=== PATIENT | male | born 1980 | race Two or more races ===

== ENCOUNTER 2020-06-14 08:35 | Emergency (ER) | payer MEDICAID ==
[~2020-06-14] VITALS: Ht 182.9 cm; Wt 78.9 kg
[2020-06-14 16:55] VITALS: BP 117/71
== END 2020-06-14 17:30 | disposition home or self-care (01) ==
LOC: ER 08:35
DX: F41.9 Anxiety disorder, unspecified (principal); F32.9 Major depressive disorder, single episode, unspecified; Z90.49 Acquired absence of other specified parts of digestive tract
CPT/HCPCS: 93005

== ENCOUNTER 2020-06-18 06:59 | Emergency (ER) | payer MEDICAID ==
[~2020-06-18] VITALS: Ht 182.9 cm; Wt 77.1 kg
[2020-06-18 07:33] VITALS: BP 135/69
[2020-06-18] MEDS ORDERED: ALPRAZolam 0.25 MG TAB PO ONE (07:45)
== END 2020-06-18 07:57 | disposition home or self-care (01) ==
LOC: ER 06:59
DX: F41.9 Anxiety disorder, unspecified (principal); Z76.0 Encounter for issue of repeat prescription; F17.210 Nicotine dependence, cigarettes, uncomplicated

== ENCOUNTER 2020-06-18 21:41 | Emergency (ER) | payer MEDICAID ==
[~2020-06-18] VITALS: Ht 182.9 cm; Wt 76.2 kg
[2020-06-18] MEDS ORDERED: LORazepam 0.5 MG TAB PO ONE (22:15)
[2020-06-18 23:40] LABS: Basophils # (auto) 0.1 10 ^3/uL (0-0.2); Basophils % (auto) 0.5 % (0.0-2.0); Eosinophils # (auto) 0.1 10 ^3/uL (0-0.8); Eosinophils % (auto) 0.7 % (0.0-7.0); Hematocrit 48.8 % (41.0-53.0); Hemoglobin 16.3 g/dL (13.5-17.5); Lymphocytes # (auto) 1.9 10 ^3/uL (0.4-5.4); Lymphocytes % (auto) 15.9 % (10.0-50.0); Mean Corpuscular Hemoglobin 29.4 pg (28.0-32.0); Mean Corpuscular Hgb Conc. 33.4 g/dL (32.0-36.0); Mean Corpuscular Volume 87.9 fL (80.0-100.0); Monocytes # (auto) 0.9 10 ^3/uL (0-1.3); Monocytes % (auto) 7.7 % (0.0-12.0); Neutrophils # (auto) 8.9 10 ^3/uL (1.6-8.6); Neutrophils % (auto) 75.2 % (37.0-80.0); Nucleated Red Blood Cells % 0.2 %; Platelet Count (auto) 262 10^3/uL (140-450); Red Blood Cells 5.56 10^6/uL (4.5-5.90); Red Cell Distribution Width 12.4 % (11.8-14.3); White Blood Cell 11.9 10^3/uL (4.4-10.8)
[2020-06-18 23:43] LABS: Urine Bacteria NONE SEEN /hpf (None Seen); Urine Blood Negative /uL (Negative); Urine Specific Gravity 1.002 (1.001-1.035); Urine WBC <1 /hpf (0 - 3)
[2020-06-18 23:57] LABS: Alcohol, Urine < 3.0 mg/dL (0-10); Amphetamine Screen, Urine NEGATIVE (NEGATIVE); Barbiturate Scree,Urine NEGATIVE (NEGATIVE); Cannabinoid Screen, Urine POSITIVE (NEGATIVE); Cocaine Screen, Urine NEGATIVE (NEGATIVE); Opiate Scree,Urine NEGATIVE (NEGATIVE); Phencyclidine Screen, Urine NEGATIVE (NEGATIVE)
[2020-06-18 23:58] LABS: Calcium 9.4 mg/dL (8.5-10.1); Potassium 3.2 mmol/L (3.5-5.1)
[2020-06-19 00:01] LABS: Albumin 4.8 g/dL (3.4-5.0); BUN/Creatinine Ratio 11.7; Salicylate < 1.7 mg/dL (2.8-20.0)
[2020-06-19 00:04] LABS: Benzodiazephine Screen, Urine NEGATIVE (NEGATIVE)
[2020-06-19 00:12] LABS: Bilirubin, Total 1.2 mg/dL (0.2-1.0); Total Protein 8.2 g/dL (6.4-8.2)
[2020-06-19 00:14] LABS: Acetaminophen < 2.0 ug/mL (10-30)
[2020-06-19 00:55] VITALS: BP 130/88
== END 2020-06-19 02:58 | disposition home or self-care (01) ==
LOC: ER 21:41
DX: F41.9 Anxiety disorder, unspecified (principal); Z76.0 Encounter for issue of repeat prescription; F17.210 Nicotine dependence, cigarettes, uncomplicated
CPT/HCPCS: 36415; 80053; 80307; 80329; 81001; 85025